=== PATIENT | male | born 1960 | race Caucasian/White ===

== ENCOUNTER → 2017-01-29 | Outpatient (CLI) | payer OTHER, BC, MEDICARE ==
--- NOTE | 2017-01-29 14:43 | RAD ---
CERVICAL SPINE 2-3V (AP, lateral, odontoid, swimmer's) Clinical Indication: NECK PAIN, X A FEW DAYS, FELL OUT OF BED Comparison: None. Findings: The cervical spine is visualized to the level of C6. Straightening of the normal cervical lordosis. No listhesis. Vertebral body heights are maintained. No evidence of acute fracture. Moderate multilevel degenerative changes of the visualized spine. No significant soft tissue abnormality. IMPRESSION: 1. No acute cervical fracture or malalignment. 2. Moderate multilevel degenerative changes of the visualized spine.
== END | disposition home or self-care (01) ==
LOC: DXRADRC 11:39
PROVIDERS: ATTEND Physician Assistant
DX: M47.892 Other spondylosis, cervical region (principal); W06.XXXA Fall from bed, initial encounter; Y93.89 Activity, other specified; Y92.89 Other specified places as the place of occurrence of the external cause; Y99.8 Other external cause status
CPT/HCPCS: 72040

== ENCOUNTER → 2018-07-16 | Outpatient (CLI) | payer BC, OTHER ==
--- NOTE | 2018-07-16 14:39 | RAD ---
Indication: Fall Geri out of of bed. Neck pain. TECHNIQUE: Multiple views of the cervical spine COMPARISON: None FINDINGS: There is loss of normal cervical lordosis. This could be due to muscle spasm or positioning. Atlantoaxial joint interval is preserved. No compression deformities. Large anterior bridging osteophytes are seen. Facet joints are in normal anatomic alignment. Visualized lungs are clear. IMPRESSION: No acute compression deformities. Anterior flowing bridging osteophytes suggestive of diffuse idiopathic skeletal hyperostosis. Electronically signed by: Joey Liu DO (07/16/2018 2:36 PM) [facility]
== END | disposition home or self-care (01) ==
LOC: PMG 14:09
PROVIDERS: ATTEND Physician Assistant
DX: M25.78 Osteophyte, vertebrae (principal)
CPT/HCPCS: 72050

== ENCOUNTER → 2019-03-29 | Outpatient (CLI) | payer BC, MEDICARE ==
--- NOTE | 2019-03-29 13:17 | RAD ---
EXAM: Abdomen sonogram. HISTORY: Thrombocytopenia. TECHNIQUE: Sonographic imaging of the abdomen was performed. COMPARISON: None. FINDINGS: The liver is upper normal in size. There is hepatic steatosis. No focal hepatic lesion is seen. The gallbladder is unremarkable. The common bile duct is normal in caliber. The kidneys are normal in size. There is no hydronephrosis or solid or cystic renal lesion. The pancreas is obscured due to bowel gas. The spleen is normal in size. No splenic lesion is seen. The aorta and inferior vena cava are unremarkable. IMPRESSION: 1. Hepatic steatosis and upper normal liver size. 2. Obscured pancreas due to bowel gas. 3. Otherwise, unremarkable abdomen sonogram. Electronically signed by: Katherine Fatima MD (03/29/2019 1:15 PM) [facility]
== END | disposition home or self-care (01) ==
LOC: US 08:48
PROVIDERS: ATTEND Internal Medicine Hematology & Oncology
DX: K76.0 Fatty (change of) liver, not elsewhere classified (principal); D69.6 Thrombocytopenia, unspecified; Z88.0 Allergy status to penicillin; Z88.1 Allergy status to other antibiotic agents
CPT/HCPCS: 76700